=== PATIENT | male | born 1990 | race Caucasian/White ===

== ENCOUNTER 2016-12-03 13:22 | Emergency (ER) | payer SELFPAY ==
[~2016-12-03] VITALS: Ht 182.9 cm; Wt 86.1 kg
[2016-12-03] MEDS ORDERED: FLEXERIL10 MG PO (13:59)
[2016-12-03] MEDS ORDERED: NAPROSYN500 MG PO (13:59)
[2016-12-03] MEDS ORDERED: PREDNISONE10 MG PO (13:59)
[2016-12-03 14:45] VITALS: BP 121/59
== END 2016-12-03 14:57 | disposition home or self-care (01) ==
LOC: EME 13:22
DX: M54.42 Lumbago with sciatica, left side (principal); F17.200 Nicotine dependence, unspecified, uncomplicated
CPT/HCPCS: 99281; 99283; J1885